=== PATIENT | male | born 1960 | race African-American/Black ===

== ENCOUNTER 2018-05-16 11:43 | Day surgery (SDC) | payer OTHER ==
[2018-05-16] MEDS ORDERED: PHENYLephrine 10% 5 ML OPH OPER (12:00)
[2018-05-16] MEDS ORDERED: PROPARACAINE 0.5% 15 ML OPH OPER (12:00)
[2018-05-16] MEDS ORDERED: ACETAZOLAMIDE (SR) 500 MG CAP PO (12:00)
[2018-05-16] MEDS ORDERED: LIDOCAINE 3.5% GEL TUBE OPER (12:00)
[2018-05-16] MEDS ORDERED: MITOMYCIN 5 MG INJ OP (12:00)
[2018-05-16] MEDS: PROPARACAINE 0.5% 15 ML OPH OPER (13:09)
[2018-05-16] MEDS: CIPROFLOXACIN 0.3% 2.5 ML OPH OPER (13:09)
[2018-05-16] MEDS ORDERED: FENTAnyl 50 MCG/ML VIAL ×2 (14:28→14:59)
[2018-05-16] MEDS ORDERED: MIDAZOLAM 1 MG/ML 2 ML INJ (14:28)
[2018-05-16] MEDS ORDERED: hydrALAzine 20 MG INJ IV (14:30)
[2018-05-16] MEDS ORDERED: HYDROmorphONE 1 MG/5 ML IV SYRINGE IV ×2 (14:30)
[2018-05-16] MEDS ORDERED: LABETALOL HCL 20MG INJ IV (14:30)
[2018-05-16] MEDS ORDERED: FENTAnyl 50 MCG/ML VIAL IV ×3 (14:30)
[2018-05-16] MEDS ORDERED: ONDANSETRON 4 MG INJ IV (14:30)
[2018-05-16] MEDS ORDERED: MEPERIDINE 25 MG INJ IV (14:30)
[2018-05-16] MEDS ORDERED: OXYCODONE/ACETAMINOPHEN (5/325) TAB PO (14:30)
[2018-05-16] MEDS ORDERED: DIPHENHYDRAMINE 50 MG INJ IV (14:30)
[2018-05-16] MEDS ORDERED: PROCHLORPERAZINE 10 MG INJ IV (14:30)
[2018-05-16] MEDS: LIDOCAINE 1%/EPI (1:100,000) (MDV) 20 ML INJ (14:35)
[2018-05-16] MEDS ORDERED: hydrALAzine 20 MG INJ (15:22)
[2018-05-16] MEDS: HYDROmorphONE 1 MG/5 ML IV SYRINGE IV ×2 (15:55→16:01)
[2018-05-16] MEDS ORDERED: DEXAMETHASONE 4 MG/ML 1 ML INJ INJ (17:00)
[2018-05-16] MEDS ORDERED: GENTAMICIN ZFS (17:00)
== END 2018-05-16 17:16 | disposition home or self-care (01) ==
LOC: SDS 11:43
DX: H40.10X0 Unspecified open-angle glaucoma, stage unspecified (principal); I10 Essential (primary) hypertension; R73.03 Prediabetes
CPT/HCPCS: 66183